=== PATIENT | male | born 1945 | race Caucasian/White ===

== ENCOUNTER 2018-06-13 08:58 | Day surgery (SDC) ==
[2018-06-13] MEDS ORDERED: DEX-MOXI-KETOR OPTH INJ 1/0.5/0.4 MG/ML IO ONE (11:10)
[2018-06-13] MEDS ORDERED: BETADINE OPTH PREP OP PRN (11:10)
[2018-06-13] MEDS ORDERED: TETRACAINE 0.5% UNIT-DOSE OP PRN (11:10)
[2018-06-13] MEDS ORDERED: LIDOCAINE 1%/PHENYLEPHRINE 1.5% BSS (SURGERY) INTRAOCULA ONE (11:10)
[2018-06-13] MEDS ORDERED: CYCLOGYL 2% OPTH OP PRN (11:10)
[2018-06-13] MEDS ORDERED: BSS WITH EPINEPHRINE OP ONE (11:10)
[2018-06-13] MEDS ORDERED: BRIMONIDINE TARTRATE 0.2% OPTH SOL OP PRN ×2 (11:10→11:11)
[2018-06-13] MEDS ORDERED: ZOFRAN 4 MG/2 ML IVP ONE (11:10)
[2018-06-13] MEDS ORDERED: LIDOCAINE 1% 20 ML MDV ID STA (11:11)
[2018-06-13] MEDS ORDERED: ZOFRAN 4 MG/2 ML ONE (11:30)
[2018-06-13] MEDS ORDERED: SUBLIMAZE ONE (11:30)
[2018-06-13] MEDS ORDERED: DIPRIVAN 20 ML VIAL IVP ONE (11:30)
[2018-06-13] MEDS ORDERED: VERSED ONE (11:30)
[2018-06-13 13:25] VITALS: TEMP 98.3
--- NOTE | 2018-06-14 13:36 | OP ---
PREOPERATIVE DIAGNOSIS:#1.RIGHT LOWER LID MARGIN LESION #2.HISTORY OF SKIN CANCER POSTOPERATIVE DIAGNOSIS: SAME DATE OF PROCEDURE: 06/13/18 PROCEDURE PERFORMED: EXCISION OF RIGHT LOWER LID MARGIN LESION SURGEON: DR. SHABANA JANE ANESTHESIA: MAC ANESTHESIOLOGIST: KIM DODSON CIRCULATING NURSE: ONESIMO HOLLIDAY SCRUB NURSE: ARA HADLEY COMPLICATIONS: NONE TECHNIQUE: The patient was taken to the operating room and placed in a supine position. The right lower lid and periocular area was prepped and draped in a routine sterile fashion. The right lower lid was infiltrated with 2% Xylocaine with Epinephrine. The right lower lid lesion was excised using a 15 degree blade. The specimen was placed in a pathology specimen cup and sent to Pathology for pathological evaluation. Hemostasis was obtained with handheld low temperature cautery. Antibiotic ointment was applied to the incision site. The patient tolerated the procedure well and was discharged to the recover area in good condition. SARA
[2018-06-18 14:01] VITALS: BP 112/78
== END 2018-06-13 12:40 | disposition home or self-care (01) ==
LOC: SURG 08:58
PROVIDERS: ATTEND Ophthalmology
DX: D23.112 Other benign neoplasm of skin of right lower eyelid, including canthus (principal); L82.1 Other seborrheic keratosis; Z85.828 Personal history of other malignant neoplasm of skin